=== PATIENT | male | born 1965 ===

== ENCOUNTER → 2018-01-30 | Day surgery (SDC) | payer OTHER ==
[~2018-01-30] MED LIST: COZAAR25 MG PO; COZAAR50 MG PO; FORTAMET1000 MG PO; HYOSCYAMINE0.125 MG PO; METFORMIN HCL500 MG; PHENTERMINE H37.5 M1 PO; SYNTHROID200 MCG PO; SYNTHROID50 MCG PO
== END | disposition home or self-care (01) ==
LOC: CIR.AMB 01-29 08:54
DX: K64.2 Third degree hemorrhoids (principal)

== ENCOUNTER 2018-03-18 08:00 | Day surgery (SDC) | payer OTHER | END 2018-03-18 14:00 | disposition home or self-care (01) | LOC: AMB-ENDOS 08:00 | DX: K64.8 Other hemorrhoids (principal) ==

== ENCOUNTER → 2019-01-26 | Emergency (ER) | payer OTHER ==
[~2019-01-26] VITALS: Ht 172.7 cm; Wt 113.4 kg
[~2019-01-26] MED LIST changes: +ADIPEX-P37.5 MG
== END | disposition home or self-care (01) ==
LOC: ER 12:52
DX: K63.89 Other specified diseases of intestine (principal)